=== PATIENT | male | born 2000 | race Caucasian/White ===

== ENCOUNTER → 2018-03-23 | Outpatient (REF) | payer OTHER | LOC: M SFHCLERA 12:20 | PROVIDERS: ATTEND Nurse Practitioner Family | DX: J02.9 Acute pharyngitis, unspecified (principal) ==

== ENCOUNTER 2018-07-14 09:11 | Day surgery (SDC) | payer BC ==
[~2018-07-14] VITALS: Ht 172.7 cm; Wt 82.1 kg
[~2018-07-14 09:11] MED LIST: BUPIVACAINE HCL 0.5% 10 ML VIAL As Ordered ONE; LIDOCAINE 1% MDV 20ML VIAL As Ordered ONE; LR 1,000 ML IV ONE; dexameTHASONE 4 MG/ML 1ML VIAL (J1100) As Ordered ONE
[2018-07-14] MEDS ORDERED: ONDANSETRON 4MG/2ML VIAL (J2405) As Ordered ONE (09:30)
[2018-07-14] MEDS ORDERED: LIDOCAINE 2% INJ 100 MG/5 ML SDV (FOR ANES.) As Ordered ONE (09:30)
[2018-07-14] MEDS ORDERED: PROPOFOL 200 MG/20 ML VIAL As Ordered ONE ×5 (09:30→11:50)
[2018-07-14] MEDS ORDERED: KETOROLAC 60 MG/2 ML VIAL (J1885) As Ordered ONE (09:30)
[2018-07-14] MEDS ORDERED: fentaNYL 100 MCG/2 ML INJECTION (J3010) As Ordered ONE ×2 (09:30→10:49)
[2018-07-14] MEDS ORDERED: MIDAZOLAM INJ 2 MG/2 ML VIAL (J2250) As Ordered ONE (09:30)
[2018-07-14] MEDS ORDERED: KETAMINE HCL 200 MG/20 ML VIAL As Ordered ONE (10:13)
[2018-07-14] MEDS ORDERED: HYDR-3713 PO (12:29)
[2018-07-14 14:00] VITALS: BP 133/77
--- NOTE | 2018-07-14 15:50 | REP ---
FLUORO GUIDANCE: HISTORY: Right foot hammer toe. Two portable radiographs were obtained with a C-Arm. The patient is status post arthrodesis of the first tarsometatarsal joint space. Metal screws are present. There is no fracture or dislocation. Fluoro time 34 seconds. IMPRESSION: The patient is status post arthrodesis of the first tarsometatarsal joint. Electronically Signed by Lee Davis MD 07/14/2018 03:51 P
--- NOTE | 2018-07-15 08:05 | RO ---
DATE OF PROCEDURE: 07/14/2018 PREOPERATIVE DIAGNOSIS: Right bunion and 2nd hammertoe. POSTOPERATIVE DIAGNOSIS: Right foot lapidis bunionectomy with 2nd hammertoe correction. SURGEON: Dr. Donald Sommer MACHINE TOOL TECHNICIAN INSTRUCTOR: None. ANESTHESIA: Monitored anesthesia care, preop injection of 20 mL of a 1 to 1 mixture of 1% Lidocaine plain and half percent Marcaine plain. ESTIMATED BLOOD LOSS: Minimal. MATERIALS: Arthrex 4-0 partially threaded screws times two, 4-5 K-wire and guidewire and hallux, 3 and 4-0 Vicryl, 4-0 Nylon. INJECTABLES: 1 mL Decadron 4 mg/mL. COMPLICATIONS: None. CONDITION: Stable. Judah Hahn is a 17-year-old male who has a large bunion and 2nd hammertoe on his right foot. These cause him difficulty finding shoe gear and cause him discomfort depending on what shoe gear he wears. He presents today for surgical correction. The patient side and site was identified and marked in the preoperative area. Consent was reviewed. The risks, complications and alternatives to the procedure were explained to the patient in detail and all questions were answered. PROCEDURE: Patient was brought to the operating room and placed on the operating room table in the supine position. Monitored anesthesia care was provided by the anesthesia team. Preoperative injection of 20 mL of a 1 to 1 mixture of 1% lidocaine plain and half percent Marcaine plain was injected into the right foot. The right foot was prepped and draped in the normal sterile fashion. A tourniquet was applied to the right ankle and inflated to 225 mmHg. A dorsal incision was drawn over the first metatarsal. Attention was first made to the metatarsal phalangeal joint. A T capsulotomy was performed exposing the metatarsal head. Next, the lateral release was performed, releasing the adductor tendons, sesamoidal ligaments and lateral capsule and the elevator was used to release the plantar structures. Following this attention was paid to the first metatarsal cuneiform joint. A linear capsulotomy was performed exposing the joint. The cartilage was removed from the base of the first metatarsal into to the distal portion of the medial cuneiform moving a wedge from the medial cuneiform. This pinned and effectively reduced the intermetatarsal angle. Following this two crossing 4-0 cannulated Arthrex screws were thrown at the first metatarsal cuneiform joint with good compression noted. Attention was then paid distally and a small portion of the medial metatarsal was resected and site was then irrigated with normal saline, wedge and medial capsule was removed and the capsular repair was performed with 3-0 Vicryl. A percutaneous capsulotomy was performed to the lateral aspect of the hallux as this was still in a more lateralized position. This reduced this deformity and this was pinned with a guidewire from the 4-0 cannulated screw. The screw was then cut and left in place. Next attention was paid to the second toe. A dorsal incision was drawn and carried through with a #15 blade. Extensor tenotomy was performed at the proximal phalangeal joint level and the capsule of the proximal interphalangeal joint was released exposing the proximal phalanx and the his was removed with a sagittal saw in the base of the middle phalanx. The cartilage was removed. The joint was reapproximated at the proximal interphalangeal joint using a 4-5 K-wire. A dorsal capsulotomy was performed at the metatarsal phalangeal joint. K-wire was inserted from the distal toe into the first metatarsal. This too was bent and cut in placed. Extensor tendons were covered with 3-0 Vicryl. Incisions closed with 4-0 Vicryl and skin with 4-0 nylon. 1 mL of Decadron was injected. Sterile dressings were applied and tourniquet was deflated. A posterior splint was applied. The patient was brought to postanesthesia care unit with vital signs stable and neurovascular status intact. He will be nonweightbearing and he will followup in the office in 2 days.
== END 2018-07-14 14:00 | disposition home or self-care (01) ==
LOC: M SDC 09:11
PROVIDERS: ATTEND Podiatrist Foot & Ankle Surgery
DX: M21.611 Bunion of right foot (principal); M20.41 Other hammer toe(s) (acquired), right foot; F12.90 Cannabis use, unspecified, uncomplicated; Z72.0 Tobacco use; Z87.81 Personal history of (healed) traumatic fracture

== ENCOUNTER 2019-01-18 21:58 | Emergency (ER) | payer OTHER, BC ==
[~2019-01-18] VITALS: Ht 172.7 cm; Wt 90.9 kg
[~2019-01-18 21:58] MED LIST changes: -BUPIVACAINE HCL 0.5% 10 ML VIAL As Ordered ONE; +HYDR-3713 PO; -LIDOCAINE 1% MDV 20ML VIAL As Ordered ONE; -LR 1,000 ML IV ONE; -dexameTHASONE 4 MG/ML 1ML VIAL (J1100) As Ordered ONE
[2019-01-18] MEDS ORDERED: NAPR-837 PO (23:20)
[2019-01-18] MEDS ORDERED: NAPROXEN 250 MG TAB PO ONE (23:30)
[2019-01-18 23:35] VITALS: BP 124/68
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
== END 2019-01-18 23:41 | disposition home or self-care (01) ==
LOC: M ED 21:58
DX: M25.561 Pain in right knee (principal); V43.52XA Car driver injured in collision with other type car in traffic accident, initial encounter; Y92.9 Unspecified place or not applicable; Y93.9 Activity, unspecified; Y99.9 Unspecified external cause status; F12.10 Cannabis abuse, uncomplicated

== ENCOUNTER → 2022-01-22 | Outpatient (REF) | payer BC ==
[~2022-01-22] MED LIST changes: +NAPR-837 PO
[2022-01-28 21:07] LABS: Ca Ox Monohydrate 100 % (.); Size 2x2 mm (.)
== END ==
LOC: M SMT 13:14
PROVIDERS: ATTEND Physician Assistant
DX: N20.0 Calculus of kidney (principal)

== ENCOUNTER → 2022-07-21 | Outpatient (CLI) | payer BC | LOC: M PLAIMG 13:59 | PROVIDERS: ATTEND Physician Assistant | DX: N20.0 Calculus of kidney (principal) ==